=== PATIENT | male | born 1965 | race African-American/Black ===

== ENCOUNTER 2016-09-18 19:22 | Emergency (ER) | payer MEDICARE, MEDICAID ==
[~2016-09-18] VITALS: Ht 172.7 cm; Wt 72.6 kg
[~2016-09-18 19:22] MED LIST: BACITRACIN OINT30 GM TP; BACTROBAN2% TP; CHOLESTEROL MED; CORTISONE28 GM TP; DOXYCYCLINE100 M1 PO; FLUCONAZOLE150 MG PO; LOPERAMIDE2 MG PO; MAPAP EXTRA ST500 M1 PO; MOTRIN 600MG.600 MG PO; PHENERGAN 25MG.25 M1 PO; Q-TUSSIN100 MG/5 M PO; SEPTRA DS 800 M1 TAB PO; SIMVASTATIN20 MG PO; TYLENOL ES500 M1 PO; ZYPREXA 2.5MG2.5 MG PO; ZYPREXA15 MG PO; [UNRECOGNIZED DRUG - OTHER] TP
--- NOTE | 2016-09-18 22:20 | Emergency Room Report ---
History of Present Illness Time Seen by [id number] Presenting Problem in Triage Pt arrived:Walked Presenting Problem:PT STATES HE HAS A RED ITCHY RASH ON BOTH ARMS. PT UNSURE WHEN IT STARTED. 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 N Clinical Suspician of Infection? N Mental Status: 1 - Regular (Normal Baseline) Sepsis Risk:Low Sepsis Risk Have you (or family members/close friends) recently traveled outside the [place]? N If Yes, where/when: Have you had exposure to infectious disease within the past month? N TB? Other? Specify: Source patient, RN notes reviewed, family, old records Exam Limitations no limitations Comment has recurrent rash on upper ext with no fever/cough / neuro sx Cardiac Chest Pain Chest pain indicative of cardiac No Timing/Duration this evening Severity moderate ALLERGIES Coded Allergies: No Known Allergies (09/18/16) Home Medications Active Scripts Hydrocort 0.5% Cream (Hydrocortisone 0.5% Cream 30GM Tube) 0.5 % TP Q8HP PRN itching #1 TUBE Prov: 07/22/16 Reported Medications Simvastatin 20 MG PO QHS Olanzapine (Zyprexa 15MG) 15 MG PO QHS Acetaminophen (Mapap) 500 MG PO DAILY #30 History Medical History General CAD? No Angina: No [place]: No Hypertension? No Hyperlipidemia? Yes CHF? No DVT? No PE? No COPD? No Asthma? No Anemia? No GERD? No Gastric ulcers? No GI Bleed? No Hernia? No Thyroid Problems? No Hypothyroidism? No CVA? No Seizures? No Diabetes? No Insulin Dependent: No Insulin Pump: No Home FSBS? No Renal Insuffiency? No End Stage Renal Disease? No UTI? No Stones? No BPH? No GB Disease: No Nephritic Syndrome? No Asplenia? No Hepatitis? No Sickle Cell Disease? No Arthritis? No Migraines? No Cataracts? No Glaucoma? No MRSA? No HIV? No TB? No Anxiety? No Depression? No Cancer? No More? Yes Additional hx: SCHIZOPHRENIA Immunization Hx DT/Tetanus > 10 YRS Surgical Hx Previous Surgery?Y LEFT ANKLE Social History Smoking Hx Smoker: Current Every Day Smoker Tobacco: Yes Type Cigarettes Packs/day < 1 Pack Are you/the child exposed to second-hand smoke: Yes Alcohol Alcohol: No Drugs none Review of Systems All Other Systems Reviewed and Negative Constitutional denies fever Eyes denies drainage ENT denies: ear pain, epistaxis, throat pain. Respiratory denies cough Cardiovascular denies palpitations Gastrointestinal denies vomiting Genitourinary denies: frequency. Musculoskeletal denies joint swelling Skin see HPI, rash Psychiatric/Neurological denies seizure Physical Exam Vital Signs Vital Signs Date Time Temp Pulse Resp B/P Pulse O2 O2 Flow FiO2 Ox Delivery Rate 09/18 1951 98.5 98 18 151/83 97 - WBC >12,000 or <4,000 or 10% bands? 2 or more SIRS Criteria Met? B/P:151/83 MAP:105 Creatinine >2.0? UA output<0.5ml/kg/hr for 2 hrs? Platelet count >100,000? Lactate >2.0mmol/1? INR >1.2 or PTT > than 60 sec? Evidence of Organ Dysfunction? Provider documented clinical suspician of infection? N Sepsis Criteria Count: 1 Sepsis Risk: Low Sepsis Risk General Appearance no apparent distress Eye Exam - bilateral eye PERRL, bilateral eye EOMI Ear, Nose, Throat normal ENT inspection Neck supple Respiratory Status No: respiratory distress. Cardiovascular regular rate/rhythm Peripheral Pulses Pulses normal Yes Extremities normal inspection Strength 4 Upper Ext (L), 4 Upper Ext (R), 4 Lower Ext (L), 4 Lower Ext (R) Neurologic alert, electroplater automatic II-XII nml as tested, no motor/sensory deficits Reflexes Reflexes normal Yes Mental status normal mood/affect Skin rash, nonspecific dermatitis w/o pustules or vesicle Medical Decision Making LABS/Meds/Orders Pt receiving controlled substance in ED? No Departure Departure Time of Disposition 2214 Disposition DC Home or Self Care(routine) Clinical Impression Primary Impression: Dermatitis Condition STABLE Referrals Jed Bates (Family) Patient Instructions DI for Itching Additional Instructions see pcp for follow up Discharge Counseling Counseled pt/family regarding diagnosis, follow up needs ED Critical Care Critical Care No at 2220
--- NOTE | 2016-09-18 22:20 | Emergency Room Report ---
History of Present Illness Time Seen by [id number] Presenting Problem in Triage Pt arrived:Walked Presenting Problem:PT STATES HE HAS A RED ITCHY RASH ON BOTH ARMS. PT UNSURE WHEN IT STARTED. 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 N Clinical Suspician of Infection? N Mental Status: 1 - Regular (Normal Baseline) Sepsis Risk:Low Sepsis Risk Have you (or family members/close friends) recently traveled outside the [place]? N If Yes, where/when: Have you had exposure to infectious disease within the past month? N TB? Other? Specify: Source patient, RN notes reviewed, family, old records Exam Limitations no limitations Comment has recurrent rash on upper ext with no fever/cough / neuro sx Cardiac Chest Pain Chest pain indicative of cardiac No Timing/Duration this evening Severity moderate ALLERGIES Coded Allergies: No Known Allergies (09/18/16) Home Medications Active Scripts Hydrocort 0.5% Cream (Hydrocortisone 0.5% Cream 30GM Tube) 0.5 % TP Q8HP PRN itching #1 TUBE Prov: 07/22/16 Reported Medications Simvastatin 20 MG PO QHS Olanzapine (Zyprexa 15MG) 15 MG PO QHS Acetaminophen (Mapap) 500 MG PO DAILY #30 History Medical History General CAD? No Angina: No [place]: No Hypertension? No Hyperlipidemia? Yes CHF? No DVT? No PE? No COPD? No Asthma? No Anemia? No GERD? No Gastric ulcers? No GI Bleed? No Hernia? No Thyroid Problems? No Hypothyroidism? No CVA? No Seizures? No Diabetes? No Insulin Dependent: No Insulin Pump: No Home FSBS? No Renal Insuffiency? No End Stage Renal Disease? No UTI? No Stones? No BPH? No GB Disease: No Nephritic Syndrome? No Asplenia? No Hepatitis? No Sickle Cell Disease? No Arthritis? No Migraines? No Cataracts? No Glaucoma? No MRSA? No HIV? No TB? No Anxiety? No Depression? No Cancer? No More? Yes Additional hx: SCHIZOPHRENIA Immunization Hx DT/Tetanus > 10 YRS Surgical Hx Previous Surgery?Y LEFT ANKLE Social History Smoking Hx Smoker: Current Every Day Smoker Tobacco: Yes Type Cigarettes Packs/day < 1 Pack Are you/the child exposed to second-hand smoke: Yes Alcohol Alcohol: No Drugs none Review of Systems All Other Systems Reviewed and Negative Constitutional denies fever Eyes denies drainage ENT denies: ear pain, epistaxis, throat pain. Respiratory denies cough Cardiovascular denies palpitations Gastrointestinal denies vomiting Genitourinary denies: frequency. Musculoskeletal denies joint swelling Skin see HPI, rash Psychiatric/Neurological denies seizure Physical Exam Vital Signs Vital Signs Date Time Temp Pulse Resp B/P Pulse O2 O2 Flow FiO2 Ox Delivery Rate 09/18 1951 98.5 98 18 151/83 97 - WBC >12,000 or <4,000 or 10% bands? 2 or more SIRS Criteria Met? B/P:151/83 MAP:105 Creatinine >2.0? UA output<0.5ml/kg/hr for 2 hrs? Platelet count >100,000? Lactate >2.0mmol/1? INR >1.2 or PTT > than 60 sec? Evidence of Organ Dysfunction? Provider documented clinical suspician of infection? N Sepsis Criteria Count: 1 Sepsis Risk: Low Sepsis Risk General Appearance no apparent distress Eye Exam - bilateral eye PERRL, bilateral eye EOMI Ear, Nose, Throat normal ENT inspection Neck supple Respiratory Status No: respiratory distress. 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 No Departure Departure Time of Disposition 2214 Disposition DC Home or Self Care(routine) Clinical Impression Primary Impression: Dermatitis Condition STABLE Referrals Jed Bates (Family) Patient Instructions DI for Itching Additional Instructions see pcp for follow up Discharge Counseling Counseled pt/family regarding diagnosis, follow up needs ED Critical Care Critical Care No at 2220
[2016-09-18 22:25] VITALS: BP 142/79
[2016-09-28] MEDS ORDERED: AMOXICOT500 MG PO (15:37)
[2016-11-07] MEDS ORDERED: PROCTOCREAM-HC2.5% TP (11:30)
== END 2016-09-18 22:26 | disposition home or self-care (01) ==
LOC: ER 19:22
DX: L25.9 Unspecified contact dermatitis, unspecified cause (principal); Z72.0 Tobacco use